=== PATIENT | male | born 1995 | race Caucasian/White ===

== ENCOUNTER 2021-02-23 23:05 | Emergency (ER) | payer BC ==
[~2021-02-23] VITALS: Ht 182.9 cm; Wt 59.0 kg
[2021-02-23] MEDS ORDERED: LIDOCAINE HCL 2% 20 ML VIAL IJ ONE (23:30)
[2021-02-24 00:22] VITALS: BP 138/77
--- NOTE | 2021-02-24 00:22 | NUR ---
Patient discharged to home in stable condition. Written and verbal after care instructions given. Patient verbalizes understanding of instructions. Stressed follow up or return to ER for worsening s/s. Patient ambulated with steady gait.
== END 2021-02-24 00:23 | disposition home or self-care (01) ==
LOC: ER 23:13
DX: S61.012A Laceration without foreign body of left thumb without damage to nail, initial encounter (principal); W26.0XXA Contact with knife, initial encounter; Y93.G9 Activity, other involving cooking and grilling; Y92.89 Other specified places as the place of occurrence of the external cause
CPT/HCPCS: A4217; A4663